=== PATIENT | female | born 1975 | race Caucasian/White ===

== ENCOUNTER 2019-04-16 13:03 | Emergency (ER) | payer MEDICAID ==
--- NOTE | 2019-04-16 13:32 | Emergency Department Record ---
History of Present Illness - General Chief Complaint: Chest Pain Stated Complaint: LEFT CHEST PAIN Time Seen by Provider: 04/16/19 13:24 Source: Patient Mode of Arrival: Ambulatory Limitations: No limitations - History of Present Illness Initial Comments: The patient is here due to developing L chest pain 2 hours prior to presenting to the ER. 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 The pain lasted 5-10 minutes and then resolved to a dull ache. There was no radiation to the back and no L arm pain. The patient also denied any SOB, SHAI, or nausea with it. She states she has no hx of similar problems and no cardiac hx. MD Complaint: Chest pain Onset/Timin -: Hour(s) Onset: During exertion Pain Location: Left chest Pain Radiation: LUE Improves With: Nothing Worsens With: Nothing Treatments Prior to Arrival: None - Related Data Allergies Allergy/AdvReac Type Severity Reaction Status Date / Time Penicillins Allergy Intermediate HIVES Verified 04/16/19 13:20 [email or web address] [From Cefzil] Allergy Mild RASH Verified 04/16/19 13:20 Travel Screening - Travel/Exposure Within Last 30 Days Have you traveled within the last 30 days?: No - Travel/Exposure Within Last Year Have you traveled outside the [place] in the last year?: No - Additonal Travel Details Have you been exposed to anyone with a communicable illness?: No - Travel Symptoms Symptom Screening: None Review of Systems Constitutional: Denies: Chills, Fever Eyes: Denies: Eye discharge ENT: Denies: Congestion Respiratory: Denies: Cough, Dyspnea Cardiovascular: Reports: Chest pain. Denies: Arrhythmia Endocrine: Denies: Fatigue Genitourinary: Denies: Dysuria Musculoskeletal: Denies: Arthralgia Past Medical History - SOCIAL HISTORY Smoking Status: Never smoker Alcohol Use: None Drug Use: None - RESPIRATORY Hx Respiratory Disorders: No - CARDIOVASCULAR Hx Cardio Disorders: No - NEURO Hx Neuro Disorders: No - GI Hx GI Disorders: No - Hx Genitourinary Disorders: Yes Hx Kidney Stones: Yes - ENDOCRINE Hx Endocrine Disorders: No - MUSCULOSKELETAL Hx Musculoskeletal Disorders: No - PSYCH Hx Psych Problems: Yes Hx Anxiety: Yes - HEMATOLOGY/ONCOLOGY Hx Hematology/Oncology Disorders: No Family Medical History Any Significant Family History?: No Physical Exam - General General Appearance: Alert, Oriented x3, Cooperative, No acute distress - Head Head exam: Atraumatic, Normocephalic, Normal inspection - Eye Eye exam: Normal appearance, PERRL - ENT Throat exam: Normal inspection. negative: Tonsillar erythema, Tonsillar exudate - Neck Neck exam: Normal inspection, Full ROM. negative: Tenderness - Respiratory Respiratory exam: Normal lung sounds bilaterally, Chest wall tenderness (mild L anterior chest.). negative: Respiratory distress - Cardiovascular Cardiovascular Exam: Regular rate, Normal rhythm, Normal heart sounds - GI/Abdominal GI/Abdominal exam: Soft, Normal bowel sounds. negative: Tenderness - Extremities Extremities exam: Normal inspection, Full ROM, Normal capillary refill. negative: Tenderness - Neurological Neurological exam: Alert, Normal gait. negative: Abnormal gait, Motor sensory deficit - Psychiatric Psychiatric exam: negative: Anxious Course Vital Signs 04/16/19 13:14 Temperature 98.3 F Pulse Rate 98 H Respiratory 18 Rate Blood Pressure 158/113 Pulse Ox 97 - Reevaluation(s) Reevaluation #1: The patient is doing a lot better at this time. She is pain free and denies any problems. We are waiting on her CT results. 04/16/19 15:00 Reevaluation #2: The patient has remained pain free since presentation to the ER after receiving the [employer]irm[employer]. I did discuss the neg workup including the EKG, xrays, and lab tests. Due to the nature of the complaint I did recommend a short stay admission to R/O DC and for further cardiac testing. The patient is refusing that plan. I then did discuss the risks of refusing that include going home and having an DC, stroke, becoming disabled and even dying. The patient presently has proper decision making capacity and fully understands and accepts the risks. She also understands we cannot be held liable for NOT admitting the patient and working the complaint up further. The patient does have an appointment with her PCP next week and is encouraged to keep it. She also was instructed to return to the ER at any time for any new or different pain or any other issues. 04/16/19 16:29 Medical Decision Making - Data Complexity MDM Data: Labs Ordered and/or Reviewed, X-Ray Ordered and/or Reviewed, EKG Ordered and/or Reviewed - Lab Data Result diagrams: 04/16/19 13:17 04/16/19 13:17 - EKG Data -: EKG Interpreted by Me EKG: No Acute Changes (NSR at 72, nonspecific T changes anterior leads. Neg for ischemia.) - Radiology Data Radiology results: Report reviewed (CXR: Neg Chest CT: Neg for PE or Dissecti on.) Disposition Disposition: Discharge Clinical Impression: Chest pain, atypical Disposition: Home, Self-Care Condition: (2) Stable Instructions: Chest Pain (ED) Additional Instructions: Please continue your regular medicines and please see your doctor next week as planned. Please bring your lab results also and please discuss your elevated liver enzymes. Please return to the ER for any new or return of the chest pain. Forms: Patient Portal Access Time of Disposition: 16:33 Quality - Quality Measures Quality Measures: N/A - Blood Pressure Screening View Details: Yes Does Patient Have Any of the Following: No Blood Pressure Classification: Hypertensive Reading Systolic Measurement: 158 Diastolic Measurement: 113 Screening for High Blood Pressure: < First Hypertensive BP, F/U Documented > [G8950] First Hypertensive Follow-up Interventions: Referral to alternative/primary care provider.
[2019-04-16] MEDS ORDERED: ACETAMINOPHEN 1,000 MG/100 ML BTL IVPB ONE (13:37)
[2019-04-16 13:52] LABS: ABSOLUTE NEUTROPHIL COUNT 5.66; BASO % 0.2 % (0-6); EOS % 0.5 % (0-6); GRAN % 69.7 % (47-80); HEMATOCRIT 43.9 % (35.0-47.0); HEMOGLOBIN 14.1 gm/dl (11.6-16.0); LYMPH % 20.4 % (16-45); MEAN CORPUSCULAR HEMOGLOBIN 26.7 pg (27-33); MEAN CORPUSCULAR HGB CONC 32.1 g/dl (32-36); MEAN PLATELET VOLUME 10.3 fl (7.4-10.4); MONO % 9.2 % (0-9); PLATELET COUNT 332 K/uL (130-400); RED BLOOD COUNT 5.29 M/uL (3.80-5.40); RED CELL DISTRIBUTION WIDTH 13.2 % (11.5-14.5); WHITE BLOOD COUNT W/O DIFF 8.1 K/uL (4.2-12.2)
[2019-04-16 14:01] LABS: BLOOD UREA NITROGEN 11 mg/dL (6-20); CREATININE 0.5 mg/dL (0.5-0.9); EST GLOMERULAR FILTRATION RATE > 60 mL/min
[2019-04-16 14:02] LABS: TOTAL PROTEIN 7.8 g/dL (6.6-8.7)
[2019-04-16 14:04] LABS: GLUCOSE,RANDOM 96 mg/dL (74-109)
[2019-04-16 14:07] LABS: ALB/GLOB RATIO 1.2 (1.1-1.8); ALBUMIN 4.3 g/dL (4.0-5.0); ALKALINE PHOSPHATASE 134 U/L (35-104); ALT/SGPT 43 U/L (<33); AST/SGOT 37 U/L (10.0-35.0)
[2019-04-16] MEDS ORDERED: 0.9 % SODIUM CHLORIDE 1,000 ML BAG IV ONE (14:33)
--- NOTE | 2019-04-16 14:35 | RADIOLOGY REPORT ---
EXAMINATION: Two View Chest Radiographs EXAM DATE: 04/16/2019 2:06 PM TECHNIQUE: Frontal and lateral views INDICATION: L CP COMPARISON: None ENCOUNTER: Not applicable FINDINGS: The cardiac and mediastinal silhouette are unremarkable. Mild dextrocurvature of the thoracic spine. No focal consolidation. No effusion or pneumothorax. IMPRESSION: No acute cardiopulmonary findings. Dictated by: Galdino Nieto MD on 04/16/2019 2:33 PM. .
--- NOTE | 2019-04-16 15:38 | CT ANGIOGRAM REPORT ---
EXAMINATION: CT Angiography of the Thorax EXAM DATE: 04/16/2019 3:10 PM TECHNIQUE: Standard protocol CT angiogram images were obtained through the chest following the admini stration of intravenous contrast. Coronal and sagittal MIP 3-D reformations were performed. IV Contrast: The amount and type of contrast are recorded in the medical record. INDICATION: CP. COMPARISON: Chest x-ray 04/16/2019 ENCOUNTER: Not applicable FINDINGS: Pulmonary Artery: No pulmonary embolism is present. Aorta: No thoracic aortic aneurysm or dissection is present. Right Heart Strain: None. Heart : There is no pericardial effusion. Fabiola and Mediastinum: No lymphadenopathy. Lung Parenchyma: Normal. Central Airways: Normal. Pleural Effusion: None. Upper Abdomen: There is a small hiatal hernia. Upper abdomen otherwise unremarkable. Musculoskeletal and Chest Wall: Dextroscoliosis. No lytic or blastic bone lesion. IMPRESSION: 1. No pulmonary emboli. No aortic aneurysm or aortic dissection. 2. No acute thoracic process. 3. Scoliosis. 4. Small hiatal hernia. Dictated by: Costa Bojorquez MD on 04/16/2019 3:29 PM. .
--- NOTE | 2019-04-16 16:51 | Emergency Department Record ---
History of Present Illness - General Chief Complaint: Chest Pain Stated Complaint: LEFT CHEST PAIN Time Seen by Provider: 04/16/19 13:24 Source: Patient Mode of Arrival: Ambulatory Limitations: No limitations - History of Present Illness Onset/Timin -: Hour(s) Onset: During exertion Pain Location: Left chest Pain Radiation: LUE Improves With: Nothing Worsens With: Nothing Treatments Prior to Arrival: None - Related Data Allergies Allergy/AdvReac Type Severity Reaction Status Date / Time Penicillins Allergy Intermediate HIVES Verified 04/16/19 13:20 [email or web address] [From Cefzil] Allergy Mild RASH Verified 04/16/19 13:20 Travel Screening - Travel/Exposure Within Last 30 Days Have you traveled within the last 30 days?: No - Travel/Exposure Within Last Year Have you traveled outside the [place] in the last year?: No - Additonal Travel Details Have you been exposed to anyone with a communicable illness?: No - Travel Symptoms Symptom Screening: None Review of Systems Constitutional: Denies: Chills, Fever Eyes: Denies: Eye discharge ENT: Denies: Congestion Respiratory: Denies: Cough, Dyspnea Cardiovascular: Reports: Chest pain. Denies: Arrhythmia Endocrine: Denies: Fatigue Genitourinary: Denies: Dysuria Musculoskeletal: Denies: Arthralgia Past Medical History - SOCIAL HISTORY Smoking Status: Never smoker Alcohol Use: None Drug Use: None - RESPIRATORY Hx Respiratory Disorders: No - CARDIOVASCULAR Hx Cardio Disorders: No - NEURO Hx Neuro Disorders: No - GI Hx GI Disorders: No - Hx Genitourinary Disorders: Yes Hx Kidney Stones: Yes - ENDOCRINE Hx Endocrine Disorders: No - MUSCULOSKELETAL Hx Musculoskeletal Disorders: No - PSYCH Hx Psych Problems: Yes Hx Anxiety: Yes - HEMATOLOGY/ONCOLOGY Hx Hematology/Oncology Disorders: No Family Medical History Any Significant Family History?: No Physical Exam - General Limitations: No limitations Course Vital Signs 04/16/19 04/16/19 04/16/19 13:14 15:08 15:57 Temperature 98.3 F Pulse Rate 98 H Pulse Rate [ 83 71 Pulse Ox Probe] Respiratory 18 18 18 Rate Blood Pressure 158/113 Blood Pressure 156/113 161/101 [Left Arm] Pulse Ox 97 97 96 - Reevaluation(s) Reevaluation #1: The patient's last blood pressure after discharge was quite elevated. I did recommend further evaluation in the ER but the patient is refusing. She understands the risks of severely elevated blood pressure which could lead to a stroke, disability and even . She firmly accepts the risks and will see her PCP this week. 04/16/19 16:49 Medical Decision Making - Lab Data Result diagrams: 04/16/19 13:17 04/16/19 13:17 Lab Results 04/16/19 04/16/19 04/16/19 Range/Units 13:17 13:17 13:17 WBC 8.1 (4.2-12.2) K/uL RBC 5.29 (3.80-5.40) M/uL Hgb 14.1 (11.6-16.0) gm/dl Hct 43.9 (35.0-47.0) % MCV 83.0 (81-97) fl MCH 26.7 L (27-33) pg MCHC 32.1 (32-36) g/dl RDW 13.2 (11.5-14.5) % Plt Count 332 (130-400) K/uL MPV 10.3 (7.4-10.4) fl Gran % 69.7 (47-80) % Lymphocytes % 20.4 (16-45) % Monocytes % 9.2 H (0-9) % Eosinophils % 0.5 (0-6) % Basophils % 0.2 (0-6) % Absolute Neutrophils 5.66 D-Dimer 0.62 H (0-0.59) mg/L FEU Sodium 139 (136-145) mmol/L Potassium 4.0 (3.4-4.5) mmol/L Chloride 100 (98-107) mmol/L Carbon Dioxide 25.0 (22-29) mmol/L Anion Gap 14.0 (7-16) BUN 11 (6-20) mg/dL Creatinine 0.5 (0.5-0.9) mg/dL Estimated GFR > 60 mL/min Random Glucose 96 (74-109) mg/dL Calcium 9.7 (8.6-10.0) mg/dL Total Bilirubin 0.40 (0.2-1.0) mg/dL AST 37 H (10.0-35.0) U/L ALT 43 H (<33) U/L Alkaline Phosphatase 134 H (35-104) U/L Troponin T < 0.010 (0-0.010) ng/mL Total Protein 7.8 (6.6-8.7) g/dL Albumin 4.3 (4.0-5.0) g/dL Globulin 3.5 (1.4-4.8) gm/dL Albumin/Globulin Ratio 1.2 (1.1-1.8) Serum HCG, Qual (NEGATIVE) 04/16/19 Range/Units 13:37 WBC (4.2-12.2) K/uL RBC (3.80-5.40) M/uL Hgb (11.6-16.0) gm/dl Hct (35.0-47.0) % MCV (81-97) fl MCH (27-33) pg MCHC (32-36) g/dl RDW (11.5-14.5) % Plt Count (130-400) K/uL MPV (7.4-10.4) fl Gran % (47-80) % Lymphocytes % (16-45) % Monocytes % (0-9) % Eosinophils % (0-6) % Basophils % (0-6) % Absolute Neutrophils D-Dimer (0-0.59) mg/L FEU Sodium (136-145) mmol/L Potassium (3.4-4.5) mmol/L Chloride (98-107) mmol/L Carbon Dioxide (22-29) mmol/L Anion Gap (7-16) BUN (6-20) mg/dL Creatinine (0.5-0.9) mg/dL Estimated GFR mL/min Random Glucose (74-109) mg/dL Calcium (8.6-10.0) mg/dL Total Bilirubin (0.2-1.0) mg/dL AST (10.0-35.0) U/L ALT (<33) U/L Alkaline Phosphatase (35-104) U/L Troponin T (0-0.010) ng/mL Total Protein (6.6-8.7) g/dL Albumin (4.0-5.0) g/dL Globulin (1.4-4.8) gm/dL Albumin/Globulin Ratio (1.1-1.8) Serum HCG, Qual Negative (NEGATIVE) Disposition Clinical Impression: Chest pain, atypical Disposition: Home, Self-Care Condition: (2) Stable Instructions: Chest Pain (ED) Additional Instructions: Please continue your regular medicines and please see your doctor next week as planned. Please bring your lab results also and please discuss your elevated liver enzymes. Please return to the ER for any new or return of the chest pain. Forms: Patient Portal Access Quality - Quality Measures Quality Measures: N/A - Blood Pressure Screening View Details: Yes Does Patient Have Any of the Following: No Blood Pressure Classification: Hypertensive Reading Systolic Measurement: 158 Diastolic Measurement: 113 Screening for High Blood Pressure: < First Hypertensive BP, F/U Documented > [G8950] First Hypertensive Follow-up Interventions: Referral to alternative/primary care provider.
== END 2019-04-16 16:50 | disposition home or self-care (01) ==
LOC: ER 13:03
DX: R07.89 Other chest pain (principal); R79.89 Other specified abnormal findings of blood chemistry
CPT/HCPCS: 99285 ×2; 96365; 85025; 80053; 84703; 84484; 85379; 71046; 71275; 93005; 93010; Q9967; J7030